=== PATIENT | male | born 1975 | race Two or more races ===

== ENCOUNTER 2023-03-24 13:31 | Emergency (ER) | payer BC ==
[~2023-03-24] VITALS: Ht 172.7 cm; Wt 115.3 kg
[2023-03-24] MEDS ORDERED: LIDOCAINE W/ EPINEPHRINE 2% INJ 20ML VIAL ID ONE (15:45)
[2023-03-24] MEDS ORDERED: NEOMYCIN-BACITRACIN-POLYM UNITDOSE PKG TOP OINT TOP ONE (15:45)
[2023-03-24] MEDS ORDERED: MORPHINE SULFATE 4 MG/ML SYR/VIAL IM ONE (16:30)
[2023-03-24] MEDS ORDERED: TETANUS-DIPTH-ACEL PERTUSSIS 0.5ML SYR Tdap IM ONE (16:30)
[2023-03-24] MEDS ORDERED: ceFAZolin 2 GM/D5W100ml 100 ML IV ONE (16:45)
[2023-03-24] MEDS ORDERED: HYDROmorphone HCL 2 MG/ML VL/or syr IM ONE ×2 (18:45→22:00)
[2023-03-24] MEDS ORDERED: HYDROmorphone HCL 2 MG/ML VL/or syr IV ONE (19:30)
[2023-03-24 19:33] VITALS: TEMP 97.5; O2SAT 96
[2023-03-24 22:21] VITALS: BP 140/76; PULSE 72; RESP 20
[2023-03-24] MEDS ORDERED: BACITRACIN TOP OINT 1 UD PKG TOP ONE (22:45)
[2023-03-24] MEDS ORDERED: ACE3T PO (22:55)
[2023-03-24] MEDS ORDERED: IBUP-1456 PO (22:55)
[2023-03-24] MEDS ORDERED: CEPH500C PO (22:55)
== END 2023-03-24 23:45 | disposition home or self-care (01) ==
LOC: ER 13:31
DX: S61.012A Laceration without foreign body of left thumb without damage to nail, initial encounter (principal); Z79.899 Other long term (current) drug therapy; W27.0XXA Contact with workbench tool, initial encounter; Y93.89 Activity, other specified; Y92.89 Other specified places as the place of occurrence of the external cause; Y99.8 Other external cause status
CPT/HCPCS: 12002; 73140; 90471; 90715; 96365; 96366; 96372; 96375; 99284; J1170; J2270